=== PATIENT | male | born 1935 | race African-American/Black ===

== ENCOUNTER 2022-05-13 14:23 | Inpatient (IN) | payer MEDICARE ==
[~2022-05-13] VITALS: Ht 167.6 cm; Wt 125.2 kg
[2022-05-13] MEDS ORDERED: ALBUTEROL (0.083%) 2.5MG/3ML NEB HHN STA (15:43)
[2022-05-13] MEDS ORDERED: IPRATROPIUM BROMIDE (0.02%) 0.5MG/2.5ML NEB HHN STA (15:43)
[2022-05-13 16:03] LABS: MEAN CORPUSCULAR HEMOGLOBIN 32.8 pg (28.0-32.0); MEAN CORPUSCULAR VOLUME 102.3 fL (80.0-94.0); MEAN PLATELET VOLUME 9.8 fl (7.4-10.4); PLATELET 332 x1000/uL (130-400); RED BLOOD CELL COUNT 1.56 mill/uL (4.7-6.1); RED CELL DISTRIBUTION WIDTH 21.9 % (11.6-14.6)
[2022-05-13 16:05] LABS: CHLORIDE 96 mEq/L (98-107)
[2022-05-13 16:20] LABS: HEMOGLOBIN. 5.1 g/dL (14.0-18.0)
[2022-05-13 17:28] LABS: BG BASE EXCESS 14.7 mmol/L (-2.0-2.0); BG CARBOXYHEMOGLOBIN 1.5 % (0.5-1.5); BG DEOXYHEMOGLOBIN 1.5 % (0.0-5.0); BG FRACTION INSPIRED OXYGEN 60; BG METHEMOGLOBIN 0.5 % (0.0-1.5); BG OXYGEN SATURATION 98.5 % (92.0-98.5); BG OXYHEMOGLOBIN 96.5 % (94.0-97.0); BG PCO2 96.8 mmHg (35.0-45.0); BG PH 7.265 (7.350-7.450); BG PO2 115.6 mmHg (75.0-100.0); BG SAMPLE SITE RIGHT RADIAL; BG TOTAL HEMOGLOBIN 5.8 g/dL (12.0-18.0); BG TOTAL RESPIRATORY RATE 18 b/min; BG VENT MODE MASK - BIPAP
[2022-05-13 18:48] LABS: BG BASE EXCESS 9.9 mmol/L (-2.0-2.0); BG CARBOXYHEMOGLOBIN 0.4 % (0.5-1.5); BG DEOXYHEMOGLOBIN 7.7 % (0.0-5.0); BG FRACTION INSPIRED OXYGEN 40; BG HCO3 ACT 36.7 mmol/L (22.0-26.0); BG METHEMOGLOBIN 0.5 % (0.0-1.5); BG OXYGEN SATURATION 92.2 % (92.0-98.5); BG OXYHEMOGLOBIN 91.4 % (94.0-97.0); BG PCO2 72.6 mmHg (35.0-45.0); BG PH 7.322 (7.350-7.450); BG PO2 74.5 mmHg (75.0-100.0); BG SAMPLE SITE LEFT RADIAL; BG TOTAL HEMOGLOBIN 5.5 g/dL (12.0-18.0); BG TOTAL RESPIRATORY RATE 30 b/min; BG VENT MODE MASK - BIPAP
[2022-05-13] MEDS ORDERED: ALBUTEROL (0.083%) 2.5MG/3ML NEB ONE (18:49)
[2022-05-13] MEDS ORDERED: IPRATROPIUM BROMIDE (0.02%) 0.5MG/2.5ML NEB ONE (18:50)
[2022-05-13] MEDS: FUROSEMIDE 40MG/4ML VIAL IVP SCH (19:08)
[2022-05-13] MEDS ORDERED: ONDANSETRON HCL 4MG/2ML INJ IV PRN (20:00)
[2022-05-13] MEDS ORDERED: ACETAMINOPHEN 325MG TABLET PO PRN (20:00)
[2022-05-13] MEDS ORDERED: MAGNESIUM/ALUMINUM HYDROXIDE/SIMETHICONE 30ML UDC PO PRN (20:00)
[2022-05-13] MEDS ORDERED: HYDROCODONE/ACETAMINOPHEN 5/325MG TABLET PO PRN (20:00)
[2022-05-13] MEDS ORDERED: IPRATROPIUM/ALBUTEROL 0.5-3(2.5)MG/3ML NEB HHN PRN (20:00)
[2022-05-13] MEDS ORDERED: ACETAMINOPHEN 650MG SUPP PR PRN ×2 (20:00)
[2022-05-13] MEDS ORDERED: CLONIDINE 0.1MG TABLET PO PRN (20:00)
[2022-05-13 21:15] LABS: INR 1.1
[2022-05-13] MEDS: LORAZEPAM 0.5MG TABLET PO PRN (21:32)
[2022-05-13 22:30] VITALS: BP 150/72
[2022-05-13 22:37] LABS: PLATELET ESTIMATE NORMAL
[2022-05-14] VITALS (16 sets, daily range): BP systolic 98–150; BP diastolic 49–78
[2022-05-14] MEDS ORDERED: INFLUENZA VACCINE 05/PF 0.5 ML SYRINGE IM ONE (01:30)
[2022-05-14] MEDS ORDERED: PNEUMOCOCCAL 23-VAL P-SAC VAC 0.5 ML IM ONE (01:30)
[2022-05-14 06:40] LABS: BASOPHILS % 0.4 % (0.0-2.0); EOSINOPHILS % 0.2 % (0.0-5.0); LYMPHOCYTES % 8.1 % (20.0-50.0); MEAN CORPUSCULAR HEMOGLOBIN 31.9 pg (28.0-32.0); MEAN CORPUSCULAR VOLUME 97.6 fL (80.0-94.0); MEAN PLATELET VOLUME 9.6 fl (7.4-10.4); MONOCYTES % 11.1 % (2.0-8.0); NEUTROPHILS % 80.2 % (40.0-76.0); PLATELET 333 x1000/uL (130-400); RED BLOOD CELL COUNT 2.06 mill/uL (4.7-6.1); RED CELL DISTRIBUTION WIDTH 22.8 % (11.6-14.6)
[2022-05-14 07:14] LABS: CHLORIDE 93 mEq/L (98-107)
[2022-05-14 07:33] LABS: HEMATOCRIT. 20.1 % (42.0-52.0); HEMOGLOBIN. 6.6 g/dL (14.0-18.0)
[2022-05-14 07:41] LABS: CREATINE KINASE 74 IU/L (39-308); HDL CHOLESTEROL 35 mg/dL (40-59); LDL CHOLESTEROL 30 mg/dL (5-100)
[2022-05-14 07:44] LABS: BG CARBOXYHEMOGLOBIN 0.2 % (0.5-1.5); BG DEOXYHEMOGLOBIN 6.3 % (0.0-5.0); BG HCO3 ACT 35.6 mmol/L (22.0-26.0); BG METHEMOGLOBIN 0.3 % (0.0-1.5); BG OXYGEN SATURATION 93.7 % (92.0-98.5); BG OXYHEMOGLOBIN 93.2 % (94.0-97.0); BG PCO2 56.6 mmHg (35.0-45.0); BG PH 7.417 (7.350-7.450); BG PO2 70.9 mmHg (75.0-100.0); BG SAMPLE SITE RIGHT RADIAL; BG TOTAL HEMOGLOBIN 7.3 g/dL (12.0-18.0); BG VENT MODE MASK - BIPAP
[2022-05-14] MEDS: FUROSEMIDE 40MG/4ML VIAL IVP SCH (08:02)
[2022-05-14] MEDS: ACETAMINOPHEN 325MG TABLET PO PRN (08:03)
[2022-05-14] MEDS: LISINOPRIL 20MG TABLET PO SCH (08:03)
[2022-05-14] MEDS: DOCUSATE SODIUM 100MG CAPSULE PO PRN (08:03)
[2022-05-14 11:03] LABS: TOTAL IRON BINDING CAPACITY 181 ug/dL (250-450)
[2022-05-14] MEDS: PANTOPRAZOLE SODIUM 40 MG/VIAL IV SCH ×2 (11:04→22:33)
[2022-05-14 11:36] LABS: VITAMIN B12 SERUM 572 pg/mL (211-911)
[2022-05-14] MEDS ORDERED: FOLIC ACID 1MG TABLET PO SCH (14:00)
[2022-05-14] MEDS: IRON SUCROSE COMPLEX 100 MG/5 ML ML IV SCH (14:51)
[2022-05-14] MEDS: FOLIC ACID 1MG TABLET PO SCH (14:51)
[2022-05-14] MEDS: METHYLPREDNISOLONE SOD SUCC 125 MG/2 ML VIAL IV SCH ×2 (14:51→22:29)
[2022-05-14] MEDS: LORAZEPAM 0.5MG TABLET PO PRN (18:20)
[2022-05-14] MEDS: IPRATROPIUM/ALBUTEROL 0.5-3(2.5)MG/3ML NEB HHN SCH ×2 (18:24→20:36)
[2022-05-14] MEDS ORDERED: MORPHINE SULFATE 2 MG/ML CPJ (NOT FOR IM USE) IV PRN (18:30)
[2022-05-14] MEDS ORDERED: LORAZEPAM 2MG/ML CPJ IV PRN (18:30)
[2022-05-14] MEDS ORDERED: CEFTRIAXONE 2 G PREMIX 50 ML IV SCH (19:15)
[2022-05-14 19:18] LABS: HEMATOCRIT 22.9 % (42.0-52.0); HEMOGLOBIN 7.6 g/dL (14.0-18.0)
[2022-05-14] MEDS: DOXYCYCLINE 100 MG in DEXT 5% WATER 100 ML IV SCH (20:43)
[2022-05-14] MEDS: CEFTRIAXONE 2,000 MG in DEXTROSE 5% WATER 50 ML IV SCH (21:54)
[2022-05-15] VITALS (14 sets, daily range): BP systolic 92–150; BP diastolic 40–76
[2022-05-15] MEDS: IPRATROPIUM/ALBUTEROL 0.5-3(2.5)MG/3ML NEB HHN SCH ×5 (00:47→21:28)
[2022-05-15 00:59] LABS: HEMATOCRIT 25.1 % (42.0-52.0)
[2022-05-15] MEDS: ACETAMINOPHEN 325MG TABLET PO PRN ×2 (02:01→21:22)
[2022-05-15 05:43] LABS: HEMATOCRIT 23.1 % (42.0-52.0); HEMOGLOBIN 7.8 g/dL (14.0-18.0)
[2022-05-15] MEDS: METHYLPREDNISOLONE SOD SUCC 125 MG/2 ML VIAL IV SCH ×3 (06:00→21:19)
[2022-05-15] MEDS: CYANOCOBALAMIN 1000MCG TABLET PO SCH (07:20)
[2022-05-15] MEDS: DOXYCYCLINE 100 MG in DEXT 5% WATER 100 ML IV SCH ×2 (09:00→21:18)
[2022-05-15] MEDS: FUROSEMIDE 40MG/4ML VIAL IVP SCH (09:02)
[2022-05-15] MEDS: PANTOPRAZOLE SODIUM 40 MG/VIAL IV SCH ×2 (09:02→21:19)
[2022-05-15] MEDS: FOLIC ACID 1MG TABLET PO SCH (09:02)
[2022-05-15] MEDS: IRON SUCROSE COMPLEX 100 MG/5 ML ML IV SCH (09:03)
[2022-05-15] MEDS: LISINOPRIL 20MG TABLET PO SCH (09:03)
[2022-05-15] MEDS ORDERED: NALOXONE HCL 0.4MG/ML VIAL IV PRN (11:15)
[2022-05-15 13:07] LABS: HEMATOCRIT 23.3 % (42.0-52.0); HEMOGLOBIN 7.7 g/dL (14.0-18.0)
[2022-05-15 18:09] LABS: HEMATOCRIT 20.7 % (42.0-52.0); HEMOGLOBIN 6.9 g/dL (14.0-18.0)
[2022-05-15] MEDS: CEFTRIAXONE 2,000 MG in DEXTROSE 5% WATER 50 ML IV SCH (21:18)
[2022-05-16] VITALS (15 sets, daily range): BP systolic 103–134; BP diastolic 47–78
[2022-05-16 00:42] LABS: HEMOGLOBIN 6.9 g/dL (14.0-18.0)
[2022-05-16 00:43] LABS: HEMATOCRIT 20.8 % (42.0-52.0)
[2022-05-16] MEDS: IPRATROPIUM/ALBUTEROL 0.5-3(2.5)MG/3ML NEB HHN SCH ×6 (00:58→20:25)
[2022-05-16 06:33] LABS: HEMATOCRIT. 24.9 % (42.0-52.0); HEMOGLOBIN. 8.3 g/dL (14.0-18.0); MEAN CORPUSCULAR HEMOGLOBIN 31.2 pg (28.0-32.0); MEAN CORPUSCULAR VOLUME 94.1 fL (80.0-94.0); MEAN PLATELET VOLUME 9.3 fl (7.4-10.4); PLATELET 378 x1000/uL (130-400); RED BLOOD CELL COUNT 2.65 mill/uL (4.7-6.1); RED CELL DISTRIBUTION WIDTH 19.4 % (11.6-14.6)
[2022-05-16] MEDS: METHYLPREDNISOLONE SOD SUCC 125 MG/2 ML VIAL IV SCH (06:50)
[2022-05-16] MEDS: CYANOCOBALAMIN 1000MCG TABLET PO SCH (06:51)
[2022-05-16 07:52] LABS: CHLORIDE 95 mEq/L (98-107)
[2022-05-16 08:08] LABS: HBSAG SCREEN Negative (Negative)
[2022-05-16] MEDS: FOLIC ACID 1MG TABLET PO SCH (08:58)
[2022-05-16] MEDS: FUROSEMIDE 40MG/4ML VIAL IVP SCH (08:58)
[2022-05-16] MEDS: IRON SUCROSE COMPLEX 100 MG/5 ML ML IV SCH (08:59)
[2022-05-16] MEDS: PANTOPRAZOLE SODIUM 40 MG/VIAL IV SCH ×2 (08:59→21:34)
[2022-05-16] MEDS: LISINOPRIL 20MG TABLET PO SCH (08:59)
[2022-05-16] MEDS: DOXYCYCLINE 100 MG in DEXT 5% WATER 100 ML IV SCH ×2 (09:00→21:35)
[2022-05-16] MEDS: METHYLPREDNISOLONE SOD SUCC 40 MG/ML VIAL IV SCH ×2 (14:00→21:35)
[2022-05-16 16:40] LABS: HEMATOCRIT 27.3 % (42.0-52.0)
[2022-05-16 21:01] LABS: HEMATOCRIT 30.9 % (42.0-52.0); HEMOGLOBIN 10.2 g/dL (14.0-18.0)
[2022-05-16] MEDS: CEFTRIAXONE 2,000 MG in DEXTROSE 5% WATER 50 ML IV SCH (21:35)
[2022-05-16 21:48] LABS: PLATELET ESTIMATE NORMAL
[2022-05-16] MEDS: ACETAMINOPHEN 325MG TABLET PO PRN (21:55)
[2022-05-17] VITALS (11 sets, daily range): BP systolic 100–133; BP diastolic 50–77
[2022-05-17] MEDS: IPRATROPIUM/ALBUTEROL 0.5-3(2.5)MG/3ML NEB HHN SCH ×6 (00:18→20:42)
[2022-05-17 00:59] LABS: HEMATOCRIT 27.8 % (42.0-52.0); HEMOGLOBIN 9.1 g/dL (14.0-18.0)
[2022-05-17 06:34] LABS: HEMATOCRIT. 26.4 % (42.0-52.0); HEMOGLOBIN. 8.7 g/dL (14.0-18.0); MEAN CORPUSCULAR HEMOGLOBIN 31.1 pg (28.0-32.0); MEAN CORPUSCULAR VOLUME 94.5 fL (80.0-94.0); MEAN PLATELET VOLUME 9.1 fl (7.4-10.4); PLATELET 396 x1000/uL (130-400); RED BLOOD CELL COUNT 2.79 mill/uL (4.7-6.1); RED CELL DISTRIBUTION WIDTH 19.7 % (11.6-14.6)
[2022-05-17] MEDS: METHYLPREDNISOLONE SOD SUCC 40 MG/ML VIAL IV SCH ×3 (06:49→22:16)
[2022-05-17] MEDS: ASCORBIC ACID 500 MG TABLET PO SCH ×3 (06:49→17:49)
[2022-05-17] MEDS: FERROUS SULFATE 325MG TABLET PO SCH ×3 (06:49→17:49)
[2022-05-17] MEDS: CYANOCOBALAMIN 1000MCG TABLET PO SCH (06:49)
[2022-05-17 07:29] LABS: CHLORIDE 97 mEq/L (98-107)
[2022-05-17] MEDS: PANTOPRAZOLE SODIUM 40 MG/VIAL IV SCH ×2 (08:32→22:15)
[2022-05-17] MEDS: DOXYCYCLINE 100 MG in DEXT 5% WATER 100 ML IV SCH ×2 (08:33→22:15)
[2022-05-17] MEDS: LISINOPRIL 20MG TABLET PO SCH (08:33)
[2022-05-17] MEDS: FUROSEMIDE 40MG/4ML VIAL IVP SCH (08:33)
[2022-05-17] MEDS: FOLIC ACID 1MG TABLET PO SCH (08:33)
[2022-05-17 10:35] LABS: BG BASE EXCESS 14.9 mmol/L (-2.0-2.0); BG CARBOXYHEMOGLOBIN 0.3 % (0.5-1.5); BG DEOXYHEMOGLOBIN 3.6 % (0.0-5.0); BG FRACTION INSPIRED OXYGEN 44; BG METHEMOGLOBIN 0.8 % (0.0-1.5); BG OXYGEN SATURATION 96.4 % (92.0-98.5); BG OXYHEMOGLOBIN 95.3 % (94.0-97.0); BG PCO2 60.8 mmHg (35.0-45.0); BG PH 7.447 (7.350-7.450); BG PO2 88.7 mmHg (75.0-100.0); BG SAMPLE SITE LEFT RADIAL; BG TOTAL HEMOGLOBIN 9.7 g/dL (12.0-18.0); BG VENT MODE NASAL CANNULA
[2022-05-17] MEDS ORDERED: ACETAZOLAMIDE 250MG TABLET PO NR ×2 (11:00→12:00)
[2022-05-17 12:01] LABS: NUCLEATED RED BLOOD CELLS 2 /100 WBC; PLATELET ESTIMATE NORMAL
[2022-05-17 12:58] LABS: CLARITY URINE CLEAR (CLEAR); COLOR URINE YELLOW (YELLOW); KETONES URINE NEGATIVE (NEGATIVE); LEUKOCYTE ESTERASE URINE NEGATIVE (NEGATIVE); NITRITE URINE NEGATIVE (NEGATIVE); OCCULT BLOOD URINE NEGATIVE (NEGATIVE); PH URINE 6.5 (4.5-8.0); PROTEIN URINE NEGATIVE (NEGATIVE)
[2022-05-17 13:48] LABS: *AMPHETAMINES SCREEN URINE NEGATIVE (NEGATIVE); *BARBITURATES SCREEN URINE NEGATIVE (NEGATIVE); *BENZODIAZEPINES SCREEN URINE NEGATIVE (NEGATIVE); *COCAINE SCREEN URINE NEGATIVE (NEGATIVE); CANNABINOID URINE SCREEN NEGATIVE (NEGATIVE); METHADONE URINE SCREEN NEGATIVE (NEGATIVE); OPIATES URINE SCREEN NEGATIVE (NEGATIVE); PHENCYCLIDINE URINE SCREEN NEGATIVE (NEGATIVE)
[2022-05-17] MEDS ORDERED: ALBU05 NEB (16:40)
[2022-05-17 17:07] LABS: HEMATOCRIT 25.5 % (42.0-52.0); HEMOGLOBIN 8.4 g/dL (14.0-18.0)
[2022-05-17] MEDS: CEFTRIAXONE 2,000 MG in DEXTROSE 5% WATER 50 ML IV SCH (22:15)
[2022-05-17] MEDS: ACETAMINOPHEN 325MG TABLET PO PRN (22:16)
[2022-05-18] VITALS (12 sets, daily range): BP systolic 102–138; BP diastolic 22–81
[2022-05-18] MEDS: IPRATROPIUM/ALBUTEROL 0.5-3(2.5)MG/3ML NEB HHN SCH ×6 (00:34→22:07)
[2022-05-18 01:28] LABS: HEMATOCRIT 25.5 % (42.0-52.0); HEMOGLOBIN 8.4 g/dL (14.0-18.0)
[2022-05-18] MEDS: ASCORBIC ACID 500 MG TABLET PO SCH ×2 (07:09→16:28)
[2022-05-18] MEDS: CYANOCOBALAMIN 1000MCG TABLET PO SCH (07:09)
[2022-05-18] MEDS: METHYLPREDNISOLONE SOD SUCC 40 MG/ML VIAL IV SCH ×3 (07:09→22:39)
[2022-05-18] MEDS: FERROUS SULFATE 325MG TABLET PO SCH ×2 (07:09→16:28)
[2022-05-18 08:18] LABS: HEMATOCRIT. 25.8 % (42.0-52.0); HEMOGLOBIN. 8.5 g/dL (14.0-18.0); MEAN CORPUSCULAR HEMOGLOBIN 31.4 pg (28.0-32.0); MEAN PLATELET VOLUME 8.9 fl (7.4-10.4); PLATELET 382 x1000/uL (130-400); RED BLOOD CELL COUNT 2.71 mill/uL (4.7-6.1); RED CELL DISTRIBUTION WIDTH 19.4 % (11.6-14.6)
[2022-05-18 08:56] LABS: PLATELET ESTIMATE NORMAL
[2022-05-18] MEDS: PANTOPRAZOLE SODIUM 40 MG/VIAL IV SCH ×2 (09:21→22:39)
[2022-05-18] MEDS: DOXYCYCLINE 100 MG in DEXT 5% WATER 100 ML IV SCH ×2 (09:21→22:38)
[2022-05-18] MEDS: FOLIC ACID 1MG TABLET PO SCH (09:21)
[2022-05-18] MEDS: FUROSEMIDE 40MG/4ML VIAL IVP SCH (09:21)
[2022-05-18] MEDS: LISINOPRIL 20MG TABLET PO SCH (09:22)
[2022-05-18 10:33] LABS: CHLORIDE 97 mEq/L (98-107)
[2022-05-18] MEDS ORDERED: GUAIFENESIN/DM 600MG/30MG ER TAB 12HR PO PRN (11:00)
[2022-05-18] MEDS: GUAIFENESIN/DM 600MG/30MG ER TAB 12HR PO SCH ×2 (16:28→22:39)
[2022-05-18] MEDS: BUDESONIDE 0.5MG/2ML NEB HHN SCH (22:08)
[2022-05-18] MEDS: CEFTRIAXONE 2,000 MG in DEXTROSE 5% WATER 50 ML IV SCH (22:38)
[2022-05-18] MEDS: ACETAMINOPHEN 325MG TABLET PO PRN (22:39)
[2022-05-19] VITALS (10 sets, daily range): BP systolic 95–129; BP diastolic 41–69
[2022-05-19] MEDS: IPRATROPIUM/ALBUTEROL 0.5-3(2.5)MG/3ML NEB HHN SCH ×6 (04:00→21:35)
[2022-05-19] MEDS: CYANOCOBALAMIN 1000MCG TABLET PO SCH (07:15)
[2022-05-19] MEDS: FERROUS SULFATE 325MG TABLET PO SCH ×2 (07:15→17:02)
[2022-05-19] MEDS: ASCORBIC ACID 500 MG TABLET PO SCH ×2 (07:16→17:02)
[2022-05-19 08:04] LABS: HEMATOCRIT. 27.1 % (42.0-52.0); HEMOGLOBIN. 8.9 g/dL (14.0-18.0); MEAN CORPUSCULAR HEMOGLOBIN 30.9 pg (28.0-32.0); MEAN CORPUSCULAR VOLUME 94.8 fL (80.0-94.0); MEAN PLATELET VOLUME 8.2 fl (7.4-10.4); PLATELET 386 x1000/uL (130-400); RED BLOOD CELL COUNT 2.86 mill/uL (4.7-6.1); RED CELL DISTRIBUTION WIDTH 19.4 % (11.6-14.6)
[2022-05-19 08:07] LABS: CHLORIDE 97 mEq/L (98-107)
[2022-05-19] MEDS: GUAIFENESIN/DM 600MG/30MG ER TAB 12HR PO SCH ×2 (09:00→22:01)
[2022-05-19] MEDS: LISINOPRIL 20MG TABLET PO SCH (09:17)
[2022-05-19] MEDS: PANTOPRAZOLE SODIUM 40 MG/VIAL IV SCH ×2 (09:17→22:00)
[2022-05-19] MEDS: METHYLPREDNISOLONE SOD SUCC 40 MG/ML VIAL IV SCH ×2 (09:17→22:00)
[2022-05-19] MEDS: GUAIFENESIN 200MG/10ML SUGAR FREE UDC PO PRN (09:17)
[2022-05-19] MEDS: DOXYCYCLINE 100 MG in DEXT 5% WATER 100 ML IV SCH (09:17)
[2022-05-19] MEDS: FUROSEMIDE 40MG/4ML VIAL IVP SCH (09:17)
[2022-05-19] MEDS: FOLIC ACID 1MG TABLET PO SCH (09:18)
[2022-05-19] MEDS: BUDESONIDE 0.5MG/2ML NEB HHN SCH ×2 (10:12→21:35)
[2022-05-19 11:27] LABS: PLATELET ESTIMATE NORMAL
[2022-05-19] MEDS ORDERED: IOHEXOL-350 100 ML BOTTLE ONE (13:31)
[2022-05-19] MEDS: CEFTRIAXONE 2,000 MG in DEXTROSE 5% WATER 50 ML IV SCH (22:00)
[2022-05-19] MEDS: ACETAMINOPHEN 325MG TABLET PO PRN (22:01)
[2022-05-20] VITALS (12 sets, daily range): BP systolic 97–128; BP diastolic 42–66
[2022-05-20] MEDS: IPRATROPIUM/ALBUTEROL 0.5-3(2.5)MG/3ML NEB HHN SCH ×7 (01:10→23:06)
[2022-05-20 06:49] LABS: HEMATOCRIT. 28.8 % (42.0-52.0); HEMOGLOBIN. 9.4 g/dL (14.0-18.0); MEAN CORPUSCULAR VOLUME 94.9 fL (80.0-94.0); MEAN PLATELET VOLUME 8.5 fl (7.4-10.4); PLATELET 376 x1000/uL (130-400); RED BLOOD CELL COUNT 3.03 mill/uL (4.7-6.1); RED CELL DISTRIBUTION WIDTH 19.6 % (11.6-14.6)
[2022-05-20 06:55] LABS: CHLORIDE 97 mEq/L (98-107)
[2022-05-20] MEDS: ASCORBIC ACID 500 MG TABLET PO SCH ×2 (07:15→17:20)
[2022-05-20] MEDS: CYANOCOBALAMIN 1000MCG TABLET PO SCH (07:15)
[2022-05-20] MEDS: FERROUS SULFATE 325MG TABLET PO SCH ×2 (07:15→17:20)
[2022-05-20] MEDS: BUDESONIDE 0.5MG/2ML NEB HHN SCH ×2 (08:34→20:30)
[2022-05-20] MEDS: METHYLPREDNISOLONE SOD SUCC 40 MG/ML VIAL IV SCH (08:55)
[2022-05-20] MEDS: GUAIFENESIN 200MG/10ML SUGAR FREE UDC PO PRN (08:56)
[2022-05-20] MEDS: GUAIFENESIN/DM 600MG/30MG ER TAB 12HR PO SCH ×2 (08:56→21:16)
[2022-05-20] MEDS: PANTOPRAZOLE SODIUM 40 MG/VIAL IV SCH ×2 (08:56→21:15)
[2022-05-20] MEDS: LISINOPRIL 20MG TABLET PO SCH (08:56)
[2022-05-20] MEDS: FUROSEMIDE 40MG/4ML VIAL IVP SCH (08:56)
[2022-05-20] MEDS: FOLIC ACID 1MG TABLET PO SCH (08:56)
[2022-05-20 10:33] LABS: PLATELET ESTIMATE NORMAL
[2022-05-20] MEDS ORDERED: ACETAZOLAMIDE 250MG TABLET PO NR (13:30)
[2022-05-21] VITALS (13 sets, daily range): BP systolic 94–127; BP diastolic 39–77
[2022-05-21] MEDS: IPRATROPIUM/ALBUTEROL 0.5-3(2.5)MG/3ML NEB HHN SCH ×5 (04:13→21:19)
[2022-05-21 05:34] LABS: CHLORIDE 96 mEq/L (98-107)
[2022-05-21 06:17] LABS: HEMOGLOBIN. 8.9 g/dL (14.0-18.0); MEAN CORPUSCULAR HEMOGLOBIN 30.8 pg (28.0-32.0); MEAN CORPUSCULAR VOLUME 97.1 fL (80.0-94.0); MEAN PLATELET VOLUME 8.9 fl (7.4-10.4); PLATELET 329 x1000/uL (130-400); RED BLOOD CELL COUNT 2.89 mill/uL (4.7-6.1); RED CELL DISTRIBUTION WIDTH 19.9 % (11.6-14.6)
[2022-05-21] MEDS: LISINOPRIL 20MG TABLET PO SCH (09:00)
[2022-05-21] MEDS: FUROSEMIDE 40MG/4ML VIAL IVP SCH ×2 (09:00→17:15)
[2022-05-21 09:02] LABS: BG BASE EXCESS 8.9 mmol/L (-2.0-2.0); BG CARBOXYHEMOGLOBIN 0.3 % (0.5-1.5); BG DEOXYHEMOGLOBIN 4.5 % (0.0-5.0); BG FRACTION INSPIRED OXYGEN 32; BG HCO3 ACT 35.6 mmol/L (22.0-26.0); BG METHEMOGLOBIN 0.3 % (0.0-1.5); BG OXYGEN SATURATION 95.5 % (92.0-98.5); BG OXYHEMOGLOBIN 94.9 % (94.0-97.0); BG PCO2 61.7 mmHg (35.0-45.0); BG PH 7.379 (7.350-7.450); BG PO2 78.9 mmHg (75.0-100.0); BG SAMPLE SITE LEFT RADIAL; BG TOTAL HEMOGLOBIN 10.1 g/dL (12.0-18.0); BG VENT MODE NASAL CANNULA
[2022-05-21] MEDS: BUDESONIDE 0.5MG/2ML NEB HHN SCH ×2 (09:04→21:17)
[2022-05-21] MEDS: FOLIC ACID 1MG TABLET PO SCH (09:51)
[2022-05-21] MEDS: FERROUS SULFATE 325MG TABLET PO SCH ×2 (09:51→17:16)
[2022-05-21] MEDS: ASCORBIC ACID 500 MG TABLET PO SCH ×2 (09:51→17:16)
[2022-05-21] MEDS: CYANOCOBALAMIN 1000MCG TABLET PO SCH (09:51)
[2022-05-21] MEDS: PANTOPRAZOLE SODIUM 40 MG/VIAL IV SCH ×2 (09:52→21:21)
[2022-05-21] MEDS: METHYLPREDNISOLONE SOD SUCC 40 MG/ML VIAL IV SCH (09:52)
[2022-05-21] MEDS: GUAIFENESIN/DM 600MG/30MG ER TAB 12HR PO SCH ×2 (09:53→21:21)
[2022-05-21] MEDS ORDERED: ACETAZOLAMIDE 250MG TABLET PO NR (12:00)
[2022-05-21 14:12] LABS: NUCLEATED RED BLOOD CELLS 1 /100 WBC; PLATELET ESTIMATE NORMAL
[2022-05-22] VITALS (8 sets, daily range): BP systolic 89–123; BP diastolic 41–69
[2022-05-22] MEDS: IPRATROPIUM/ALBUTEROL 0.5-3(2.5)MG/3ML NEB HHN SCH ×6 (00:49→22:01)
[2022-05-22 05:24] LABS: HEMATOCRIT. 27.8 % (42.0-52.0); MEAN CORPUSCULAR HEMOGLOBIN 31.3 pg (28.0-32.0); MEAN CORPUSCULAR VOLUME 96.8 fL (80.0-94.0); MEAN PLATELET VOLUME 9.1 fl (7.4-10.4); PLATELET 273 x1000/uL (130-400); RED BLOOD CELL COUNT 2.87 mill/uL (4.7-6.1); RED CELL DISTRIBUTION WIDTH 19.8 % (11.6-14.6)
[2022-05-22 06:22] LABS: CHLORIDE 95 mEq/L (98-107)
[2022-05-22] MEDS: LISINOPRIL 20MG TABLET PO SCH (09:19)
[2022-05-22] MEDS: ASCORBIC ACID 500 MG TABLET PO SCH ×2 (09:19→17:02)
[2022-05-22] MEDS: PREDNISONE 20MG TABLET PO SCH (09:19)
[2022-05-22] MEDS: DOCUSATE SODIUM 100MG CAPSULE PO PRN (09:20)
[2022-05-22] MEDS: FERROUS SULFATE 325MG TABLET PO SCH ×2 (09:20→17:02)
[2022-05-22] MEDS: FUROSEMIDE 40MG/4ML VIAL IVP SCH (09:20)
[2022-05-22] MEDS: GUAIFENESIN/DM 600MG/30MG ER TAB 12HR PO SCH ×2 (09:20→21:13)
[2022-05-22] MEDS: FOLIC ACID 1MG TABLET PO SCH (09:20)
[2022-05-22] MEDS: PANTOPRAZOLE SODIUM 40 MG/VIAL IV SCH (09:20)
[2022-05-22] MEDS: CYANOCOBALAMIN 1000MCG TABLET PO SCH (09:20)
[2022-05-22 09:45] LABS: PLATELET ESTIMATE NORMAL
[2022-05-22] MEDS: PANTOPRAZOLE 40MG DR TABLET PO SCH (21:12)
[2022-05-23] VITALS (7 sets, daily range): BP systolic 102–132; BP diastolic 41–57
[2022-05-23] MEDS: IPRATROPIUM/ALBUTEROL 0.5-3(2.5)MG/3ML NEB HHN SCH ×5 (02:00→16:42)
[2022-05-23] MEDS: PANTOPRAZOLE 40MG DR TABLET PO SCH ×2 (06:00→20:26)
[2022-05-23] MEDS: FOLIC ACID 1MG TABLET PO SCH (08:03)
[2022-05-23] MEDS: ASCORBIC ACID 500 MG TABLET PO SCH ×2 (08:03→18:06)
[2022-05-23] MEDS: LISINOPRIL 20MG TABLET PO SCH (08:03)
[2022-05-23] MEDS: PREDNISONE 20MG TABLET PO SCH (08:03)
[2022-05-23] MEDS: FERROUS SULFATE 325MG TABLET PO SCH ×2 (08:03→18:06)
[2022-05-23] MEDS: GUAIFENESIN 200MG/10ML SUGAR FREE UDC PO PRN (08:03)
[2022-05-23] MEDS: FUROSEMIDE 40MG TABLET PO SCH (08:03)
[2022-05-23] MEDS: GUAIFENESIN/DM 600MG/30MG ER TAB 12HR PO SCH ×2 (08:05→20:26)
[2022-05-23] MEDS: CYANOCOBALAMIN 1000MCG TABLET PO SCH (08:06)
[2022-05-23 10:25] LABS: HEMATOCRIT. 26.5 % (42.0-52.0); HEMOGLOBIN. 8.6 g/dL (14.0-18.0); MEAN CORPUSCULAR HEMOGLOBIN 31.5 pg (28.0-32.0); MEAN CORPUSCULAR VOLUME 97.2 fL (80.0-94.0); MEAN PLATELET VOLUME 9.2 fl (7.4-10.4); PLATELET 240 x1000/uL (130-400); RED BLOOD CELL COUNT 2.73 mill/uL (4.7-6.1); RED CELL DISTRIBUTION WIDTH 20.1 % (11.6-14.6)
[2022-05-23 10:38] LABS: CHLORIDE 96 mEq/L (98-107)
[2022-05-23 11:21] LABS: PLATELET ESTIMATE NORMAL
[2022-05-24] VITALS: BP 118/59
[2022-05-24 04:00] VITALS: BP 127/58
[2022-05-24] MEDS: PANTOPRAZOLE 40MG DR TABLET PO SCH ×2 (06:20→20:06)
[2022-05-24 08:00] VITALS: BP 128/53
[2022-05-24] MEDS: FERROUS SULFATE 325MG TABLET PO SCH ×2 (09:58→18:20)
[2022-05-24] MEDS: FOLIC ACID 1MG TABLET PO SCH (09:58)
[2022-05-24] MEDS: FUROSEMIDE 40MG TABLET PO SCH (09:59)
[2022-05-24] MEDS: CYANOCOBALAMIN 1000MCG TABLET PO SCH (09:59)
[2022-05-24] MEDS: ASCORBIC ACID 500 MG TABLET PO SCH ×2 (09:59→18:20)
[2022-05-24] MEDS: PREDNISONE 20MG TABLET PO SCH (09:59)
[2022-05-24] MEDS: GUAIFENESIN/DM 600MG/30MG ER TAB 12HR PO SCH ×2 (09:59→20:06)
[2022-05-24 10:20] LABS: HEMATOCRIT. 29.6 % (42.0-52.0); HEMOGLOBIN. 9.2 g/dL (14.0-18.0); MEAN CORPUSCULAR HEMOGLOBIN 31.1 pg (28.0-32.0); MEAN CORPUSCULAR VOLUME 99.9 fL (80.0-94.0); MEAN PLATELET VOLUME 9.6 fl (7.4-10.4); PLATELET 217 x1000/uL (130-400); RED BLOOD CELL COUNT 2.96 mill/uL (4.7-6.1); RED CELL DISTRIBUTION WIDTH 20.2 % (11.6-14.6)
[2022-05-24 11:51] LABS: PLATELET ESTIMATE NORMAL
[2022-05-24 12:00] VITALS: BP 130/55
[2022-05-24 13:18] LABS: CHLORIDE 99 mEq/L (98-107)
[2022-05-24 16:00] VITALS: BP 131/58
[2022-05-24] MEDS: ACETAMINOPHEN 325MG TABLET PO PRN (20:07)
[2022-05-24 20:27] VITALS: BP 95/53
[2022-05-24] MEDS: IPRATROPIUM/ALBUTEROL 0.5-3(2.5)MG/3ML NEB HHN SCH (23:20)
[2022-05-25] MEDS: IPRATROPIUM/ALBUTEROL 0.5-3(2.5)MG/3ML NEB HHN SCH ×9 (01:48→21:23)
[2022-05-25 06:34] VITALS: BP 146/60
[2022-05-25 06:35] VITALS: BP 146/60
[2022-05-25 07:53] LABS: HEMATOCRIT. 26.9 % (42.0-52.0); HEMOGLOBIN. 8.7 g/dL (14.0-18.0); MEAN CORPUSCULAR HEMOGLOBIN 31.8 pg (28.0-32.0); MEAN CORPUSCULAR VOLUME 97.7 fL (80.0-94.0); MEAN PLATELET VOLUME 9.3 fl (7.4-10.4); PLATELET 228 x1000/uL (130-400); RED BLOOD CELL COUNT 2.75 mill/uL (4.7-6.1); RED CELL DISTRIBUTION WIDTH 20.6 % (11.6-14.6)
[2022-05-25 08:00] VITALS: BP 113/47
[2022-05-25] MEDS: PANTOPRAZOLE 40MG DR TABLET PO SCH ×2 (08:21→20:47)
[2022-05-25] MEDS: GUAIFENESIN/DM 600MG/30MG ER TAB 12HR PO SCH ×2 (08:21→20:46)
[2022-05-25] MEDS: CYANOCOBALAMIN 1000MCG TABLET PO SCH (08:21)
[2022-05-25] MEDS: FOLIC ACID 1MG TABLET PO SCH (08:21)
[2022-05-25] MEDS: FUROSEMIDE 40MG TABLET PO SCH (08:21)
[2022-05-25] MEDS: ACETAMINOPHEN 325MG TABLET PO PRN ×2 (08:21→18:22)
[2022-05-25] MEDS: ASCORBIC ACID 500 MG TABLET PO SCH ×2 (08:21→18:19)
[2022-05-25] MEDS: FERROUS SULFATE 325MG TABLET PO SCH ×2 (08:21→18:19)
[2022-05-25] MEDS: PREDNISONE 10MG TABLET PO SCH (09:00)
[2022-05-25 09:33] LABS: CHLORIDE 98 mEq/L (98-107)
[2022-05-25 09:34] LABS: PLATELET ESTIMATE NORMAL
[2022-05-25 12:00] VITALS: BP 123/72
[2022-05-25 16:00] VITALS: BP 130/68
[2022-05-25 20:13] VITALS: BP 122/58
[2022-05-26] MEDS: IPRATROPIUM/ALBUTEROL 0.5-3(2.5)MG/3ML NEB HHN SCH ×4 (00:27→20:59)
[2022-05-26 00:35] VITALS: BP 132/60
[2022-05-26 04:27] VITALS: BP 136/72
[2022-05-26 08:28] LABS: HEMATOCRIT. 27.2 % (42.0-52.0); HEMOGLOBIN. 8.8 g/dL (14.0-18.0); MEAN CORPUSCULAR HEMOGLOBIN 31.4 pg (28.0-32.0); MEAN CORPUSCULAR VOLUME 96.8 fL (80.0-94.0); MEAN PLATELET VOLUME 10.4 fl (7.4-10.4); PLATELET 239 x1000/uL (130-400); RED BLOOD CELL COUNT 2.81 mill/uL (4.7-6.1); RED CELL DISTRIBUTION WIDTH 20.1 % (11.6-14.6)
[2022-05-26] MEDS: FOLIC ACID 1MG TABLET PO SCH (08:43)
[2022-05-26] MEDS: FERROUS SULFATE 325MG TABLET PO SCH ×2 (08:43→18:01)
[2022-05-26] MEDS: ASCORBIC ACID 500 MG TABLET PO SCH ×2 (08:43→18:01)
[2022-05-26] MEDS: PANTOPRAZOLE 40MG DR TABLET PO SCH ×2 (08:44→20:21)
[2022-05-26] MEDS: PREDNISONE 10MG TABLET PO SCH (08:45)
[2022-05-26] MEDS: FUROSEMIDE 40MG TABLET PO SCH (08:45)
[2022-05-26] MEDS: CYANOCOBALAMIN 1000MCG TABLET PO SCH (08:46)
[2022-05-26] MEDS: GUAIFENESIN/DM 600MG/30MG ER TAB 12HR PO SCH ×2 (08:46→20:21)
[2022-05-26] MEDS: ACETAMINOPHEN 325MG TABLET PO PRN ×2 (08:58→20:20)
[2022-05-26 09:15] LABS: CHLORIDE 96 mEq/L (98-107)
[2022-05-26 14:26] LABS: PLATELET ESTIMATE NORMAL
[2022-05-26 16:00] VITALS: BP 125/51
[2022-05-26 20:00] VITALS: BP 118/56
[2022-05-27] VITALS: BP 120/71
[2022-05-27] MEDS: IPRATROPIUM/ALBUTEROL 0.5-3(2.5)MG/3ML NEB HHN SCH ×7 (00:35→23:57)
[2022-05-27] MEDS: ACETAMINOPHEN 325MG TABLET PO PRN ×2 (08:17→21:03)
[2022-05-27] MEDS: FOLIC ACID 1MG TABLET PO SCH (08:17)
[2022-05-27] MEDS: FERROUS SULFATE 325MG TABLET PO SCH ×2 (08:17→17:50)
[2022-05-27] MEDS: CYANOCOBALAMIN 1000MCG TABLET PO SCH (08:17)
[2022-05-27] MEDS: GUAIFENESIN/DM 600MG/30MG ER TAB 12HR PO SCH ×2 (08:18→21:03)
[2022-05-27] MEDS: ASCORBIC ACID 500 MG TABLET PO SCH ×2 (08:18→17:50)
[2022-05-27] MEDS: FUROSEMIDE 40MG TABLET PO SCH (08:18)
[2022-05-27] MEDS: PANTOPRAZOLE 40MG DR TABLET PO SCH ×2 (08:23→21:02)
[2022-05-27 09:15] LABS: HEMATOCRIT. 24.8 % (42.0-52.0); HEMOGLOBIN. 8.3 g/dL (14.0-18.0); MEAN CORPUSCULAR HEMOGLOBIN 32.5 pg (28.0-32.0); MEAN CORPUSCULAR VOLUME 96.6 fL (80.0-94.0); MEAN PLATELET VOLUME 9.7 fl (7.4-10.4); PLATELET 212 x1000/uL (130-400); RED BLOOD CELL COUNT 2.56 mill/uL (4.7-6.1); RED CELL DISTRIBUTION WIDTH 20.1 % (11.6-14.6)
[2022-05-27 09:52] LABS: CHLORIDE 97 mEq/L (98-107)
[2022-05-27 10:03] LABS: PLATELET ESTIMATE NORMAL
[2022-05-27 20:00] VITALS: BP 102/63
[2022-05-27] MEDS: TRAZODONE HCL 50MG TABLET PO SCH (21:03)
[2022-05-28 04:00] VITALS: BP 98/36
[2022-05-28] MEDS: IPRATROPIUM/ALBUTEROL 0.5-3(2.5)MG/3ML NEB HHN SCH ×5 (05:20→21:15)
[2022-05-28] MEDS: PANTOPRAZOLE 40MG DR TABLET PO SCH ×2 (07:23→21:37)
[2022-05-28] MEDS: ACETAMINOPHEN 325MG TABLET PO PRN ×3 (07:28→21:37)
[2022-05-28] MEDS: FOLIC ACID 1MG TABLET PO SCH (08:22)
[2022-05-28] MEDS: GUAIFENESIN/DM 600MG/30MG ER TAB 12HR PO SCH ×2 (08:22→21:37)
[2022-05-28] MEDS: CYANOCOBALAMIN 1000MCG TABLET PO SCH (08:22)
[2022-05-28] MEDS: FERROUS SULFATE 325MG TABLET PO SCH ×2 (08:22→17:58)
[2022-05-28] MEDS: FUROSEMIDE 40MG TABLET PO SCH (08:22)
[2022-05-28] MEDS: ASCORBIC ACID 500 MG TABLET PO SCH ×2 (08:22→17:58)
[2022-05-28] MEDS ORDERED: SODIUM CHLORIDE 0.9% 500 ML IV ONE (12:00)
[2022-05-28] MEDS ORDERED: IPRATROPIUM BROMIDE (0.02%) 0.5MG/2.5ML NEB HHN SCH (12:00)
[2022-05-28] MEDS ORDERED: ALBUMIN HUMAN 25GM/100ML (25%) IV NR (12:00)
[2022-05-28 12:22] LABS: BG BASE EXCESS 8.1 mmol/L (-2.0-2.0); BG CARBOXYHEMOGLOBIN 0.3 % (0.5-1.5); BG DEOXYHEMOGLOBIN 4.6 % (0.0-5.0); BG HCO3 ACT 32.9 mmol/L (22.0-26.0); BG OXYGEN SATURATION 95.4 % (92.0-98.5); BG OXYHEMOGLOBIN 95.1 % (94.0-97.0); BG PCO2 47.7 mmHg (35.0-45.0); BG PH 7.457 (7.350-7.450); BG PO2 73.6 mmHg (75.0-100.0); BG SAMPLE SITE RIGHT RADIAL; BG VENT MODE NASAL CANNULA
[2022-05-28 13:21] LABS: HEMATOCRIT. 25.3 % (42.0-52.0); HEMOGLOBIN. 8.5 g/dL (14.0-18.0); MEAN CORPUSCULAR HEMOGLOBIN 32.5 pg (28.0-32.0); MEAN CORPUSCULAR VOLUME 97.1 fL (80.0-94.0); MEAN PLATELET VOLUME 9.9 fl (7.4-10.4); PLATELET 219 x1000/uL (130-400); RED BLOOD CELL COUNT 2.61 mill/uL (4.7-6.1); RED CELL DISTRIBUTION WIDTH 20.2 % (11.6-14.6)
[2022-05-28 13:50] LABS: PLATELET ESTIMATE NORMAL
[2022-05-28 14:07] LABS: CHLORIDE 99 mEq/L (98-107)
[2022-05-28 16:00] VITALS: BP 114/55
[2022-05-28 20:00] VITALS: BP 153/81
[2022-05-28] MEDS: TRAZODONE HCL 50MG TABLET PO SCH (21:37)
[2022-05-29] VITALS: BP 146/75
[2022-05-29] MEDS: IPRATROPIUM/ALBUTEROL 0.5-3(2.5)MG/3ML NEB HHN SCH ×6 (00:16→21:17)
[2022-05-29 04:00] VITALS: BP 140/88
[2022-05-29] MEDS: FERROUS SULFATE 325MG TABLET PO SCH ×2 (06:54→19:09)
[2022-05-29] MEDS: ASCORBIC ACID 500 MG TABLET PO SCH ×2 (06:54→19:09)
[2022-05-29] MEDS: CYANOCOBALAMIN 1000MCG TABLET PO SCH (06:54)
[2022-05-29] MEDS: PANTOPRAZOLE 40MG DR TABLET PO SCH ×2 (06:55→21:17)
[2022-05-29 07:06] LABS: HEMOGLOBIN. 8.1 g/dL (14.0-18.0); MEAN CORPUSCULAR HEMOGLOBIN 32.5 pg (28.0-32.0); MEAN PLATELET VOLUME 9.7 fl (7.4-10.4); PLATELET 223 x1000/uL (130-400); RED CELL DISTRIBUTION WIDTH 21.2 % (11.6-14.6)
[2022-05-29 07:54] VITALS: BP 105/44
[2022-05-29 08:07] LABS: CHLORIDE 100 mEq/L (98-107)
[2022-05-29] MEDS: GUAIFENESIN/DM 600MG/30MG ER TAB 12HR PO SCH ×2 (09:00→21:17)
[2022-05-29 10:07] LABS: PLATELET ESTIMATE NORMAL
[2022-05-29] MEDS: FOLIC ACID 1MG TABLET PO SCH (11:12)
[2022-05-29] MEDS: FUROSEMIDE 40MG TABLET PO SCH (11:12)
[2022-05-29] MEDS: ACETAMINOPHEN 325MG TABLET PO PRN ×2 (11:16→19:12)
[2022-05-29] MEDS: DOCUSATE SODIUM 100MG CAPSULE PO PRN (11:25)
[2022-05-29 11:52] VITALS: BP 108/55
[2022-05-29 16:11] VITALS: BP 101/53
[2022-05-29 20:00] VITALS: BP 104/48
[2022-05-29] MEDS: TRAZODONE HCL 50MG TABLET PO SCH (21:17)
[2022-05-30] VITALS: BP 104/55
[2022-05-30] MEDS: IPRATROPIUM/ALBUTEROL 0.5-3(2.5)MG/3ML NEB HHN SCH ×6 (01:12→21:15)
[2022-05-30 04:00] VITALS: BP 110/57
[2022-05-30] MEDS: ACETAMINOPHEN 325MG TABLET PO PRN ×2 (05:11→12:45)
[2022-05-30] MEDS: PANTOPRAZOLE 40MG DR TABLET PO SCH ×2 (06:41→21:40)
[2022-05-30] MEDS: CYANOCOBALAMIN 1000MCG TABLET PO SCH (06:55)
[2022-05-30] MEDS: FERROUS SULFATE 325MG TABLET PO SCH ×2 (06:55→19:09)
[2022-05-30] MEDS: ASCORBIC ACID 500 MG TABLET PO SCH ×2 (06:55→19:08)
[2022-05-30 08:00] VITALS: BP 103/52
[2022-05-30 08:10] LABS: BASOPHILS % 0.6 % (0.0-2.0); EOSINOPHILS % 1.4 % (0.0-5.0); HEMATOCRIT. 23.7 % (42.0-52.0); LYMPHOCYTES % 16.3 % (20.0-50.0); MEAN CORPUSCULAR HEMOGLOBIN 32.6 pg (28.0-32.0); MEAN CORPUSCULAR VOLUME 96.3 fL (80.0-94.0); MEAN PLATELET VOLUME 8.9 fl (7.4-10.4); MONOCYTES % 12.3 % (2.0-8.0); NEUTROPHILS % 69.4 % (40.0-76.0); PLATELET 222 x1000/uL (130-400); RED BLOOD CELL COUNT 2.46 mill/uL (4.7-6.1); RED CELL DISTRIBUTION WIDTH 20.1 % (11.6-14.6)
[2022-05-30] MEDS: FOLIC ACID 1MG TABLET PO SCH (09:01)
[2022-05-30] MEDS: FUROSEMIDE 40MG TABLET PO SCH (09:01)
[2022-05-30] MEDS: GUAIFENESIN/DM 600MG/30MG ER TAB 12HR PO SCH ×2 (09:01→21:40)
[2022-05-30 10:43] LABS: CHLORIDE 98 mEq/L (98-107)
[2022-05-30 12:00] VITALS: BP 113/53
[2022-05-30] MEDS: DOCUSATE SODIUM 100MG CAPSULE PO PRN (12:45)
[2022-05-30 16:00] VITALS: BP 122/60
[2022-05-30 20:00] VITALS: BP 102/50
[2022-05-30] MEDS: TRAZODONE HCL 50MG TABLET PO SCH (21:40)
[2022-05-31] VITALS: BP 106/54
[2022-05-31] MEDS: IPRATROPIUM/ALBUTEROL 0.5-3(2.5)MG/3ML NEB HHN SCH ×6 (00:58→21:08)
[2022-05-31 04:00] VITALS: BP 109/42
[2022-05-31] MEDS: FERROUS SULFATE 325MG TABLET PO SCH ×2 (06:54→17:50)
[2022-05-31] MEDS: CYANOCOBALAMIN 1000MCG TABLET PO SCH (06:54)
[2022-05-31] MEDS: ASCORBIC ACID 500 MG TABLET PO SCH ×2 (06:54→17:50)
[2022-05-31] MEDS: PANTOPRAZOLE 40MG DR TABLET PO SCH ×2 (06:54→20:50)
[2022-05-31] MEDS: ACETAMINOPHEN 325MG TABLET PO PRN ×2 (06:56→19:12)
[2022-05-31 08:00] VITALS: BP 105/58
[2022-05-31] MEDS: FOLIC ACID 1MG TABLET PO SCH (08:20)
[2022-05-31] MEDS: GUAIFENESIN 200MG/10ML SUGAR FREE UDC PO PRN (08:20)
[2022-05-31] MEDS: GUAIFENESIN/DM 600MG/30MG ER TAB 12HR PO SCH ×2 (08:23→20:50)
[2022-05-31] MEDS: AMLODIPINE 2.5MG TABLET PO SCH (08:25)
[2022-05-31 08:37] LABS: BASOPHILS % 0.6 % (0.0-2.0); EOSINOPHILS % 2.1 % (0.0-5.0); HEMATOCRIT. 26.1 % (42.0-52.0); HEMOGLOBIN. 8.5 g/dL (14.0-18.0); LYMPHOCYTES % 12.4 % (20.0-50.0); MEAN CORPUSCULAR VOLUME 97.9 fL (80.0-94.0); MEAN PLATELET VOLUME 9.4 fl (7.4-10.4); MONOCYTES % 10.7 % (2.0-8.0); NEUTROPHILS % 74.2 % (40.0-76.0); PLATELET 219 x1000/uL (130-400); RED BLOOD CELL COUNT 2.66 mill/uL (4.7-6.1); RED CELL DISTRIBUTION WIDTH 21.5 % (11.6-14.6)
[2022-05-31 12:00] VITALS: BP 110/50
[2022-05-31 16:00] VITALS: BP 136/60
[2022-05-31 16:10] LABS: CHLORIDE 97 mEq/L (98-107)
[2022-05-31 19:59] LABS: CLARITY URINE CLEAR (CLEAR); COLOR URINE YELLOW (YELLOW); KETONES URINE NEGATIVE (NEGATIVE); LEUKOCYTE ESTERASE URINE 1+ (NEGATIVE); NITRITE URINE NEGATIVE (NEGATIVE); OCCULT BLOOD URINE NEGATIVE (NEGATIVE); PH URINE 7.5 (4.5-8.0); PROTEIN URINE NEGATIVE (NEGATIVE)
[2022-05-31 20:00] VITALS: BP 101/53
[2022-05-31] MEDS: TRAZODONE HCL 50MG TABLET PO SCH (20:50)
[2022-06-01] VITALS: BP 112/52
[2022-06-01] MEDS: IPRATROPIUM/ALBUTEROL 0.5-3(2.5)MG/3ML NEB HHN SCH ×6 (01:15→21:00)
[2022-06-01 04:00] VITALS: BP 115/52
[2022-06-01] MEDS: CYANOCOBALAMIN 1000MCG TABLET PO SCH (07:01)
[2022-06-01] MEDS: PANTOPRAZOLE 40MG DR TABLET PO SCH ×2 (07:01→20:22)
[2022-06-01] MEDS: ASCORBIC ACID 500 MG TABLET PO SCH ×2 (07:01→17:29)
[2022-06-01] MEDS: FERROUS SULFATE 325MG TABLET PO SCH ×2 (07:01→17:29)
[2022-06-01] MEDS: ACETAMINOPHEN 325MG TABLET PO PRN ×2 (07:38→17:40)
[2022-06-01 07:51] LABS: HEMATOCRIT. 25.5 % (42.0-52.0); HEMOGLOBIN. 8.5 g/dL (14.0-18.0); MEAN CORPUSCULAR HEMOGLOBIN 32.4 pg (28.0-32.0); MEAN CORPUSCULAR VOLUME 97.8 fL (80.0-94.0); MEAN PLATELET VOLUME 9.1 fl (7.4-10.4); PLATELET 221 x1000/uL (130-400); RED BLOOD CELL COUNT 2.61 mill/uL (4.7-6.1); RED CELL DISTRIBUTION WIDTH 21.3 % (11.6-14.6)
[2022-06-01 08:00] VITALS: BP 98/60
[2022-06-01] MEDS: AMLODIPINE 2.5MG TABLET PO SCH (09:00)
[2022-06-01] MEDS: SULFAMETHOXAZOLE/TRIMETHOPRIM 800/160MG TABLET PO SCH ×2 (09:24→20:22)
[2022-06-01] MEDS: FOLIC ACID 1MG TABLET PO SCH (09:24)
[2022-06-01] MEDS: GUAIFENESIN/DM 600MG/30MG ER TAB 12HR PO SCH ×2 (09:24→20:22)
[2022-06-01 10:45] LABS: PLATELET ESTIMATE NORMAL
[2022-06-01 10:47] LABS: CHLORIDE 98 mEq/L (98-107)
[2022-06-01 16:00] VITALS: BP 113/45
[2022-06-01 20:00] VITALS: BP 111/54
[2022-06-01] MEDS: TRAZODONE HCL 50MG TABLET PO SCH (20:22)
[2022-06-02] VITALS: BP 130/56
[2022-06-02] MEDS: IPRATROPIUM/ALBUTEROL 0.5-3(2.5)MG/3ML NEB HHN SCH ×5 (00:14→20:48)
[2022-06-02 04:00] VITALS: BP 129/55
[2022-06-02] MEDS: ACETAMINOPHEN 325MG TABLET PO PRN ×2 (04:58→20:11)
[2022-06-02] MEDS: ASCORBIC ACID 500 MG TABLET PO SCH ×2 (06:05→18:04)
[2022-06-02] MEDS: FERROUS SULFATE 325MG TABLET PO SCH ×2 (06:05→18:04)
[2022-06-02] MEDS: PANTOPRAZOLE 40MG DR TABLET PO SCH ×2 (06:05→20:12)
[2022-06-02] MEDS: CYANOCOBALAMIN 1000MCG TABLET PO SCH (06:05)
[2022-06-02 07:35] LABS: HEMATOCRIT. 24.1 % (42.0-52.0); MEAN CORPUSCULAR HEMOGLOBIN 32.6 pg (28.0-32.0); MEAN CORPUSCULAR VOLUME 98.3 fL (80.0-94.0); PLATELET 206 x1000/uL (130-400); RED BLOOD CELL COUNT 2.45 mill/uL (4.7-6.1); RED CELL DISTRIBUTION WIDTH 21.4 % (11.6-14.6)
[2022-06-02 08:00] VITALS: BP 117/55
[2022-06-02 08:03] LABS: CHLORIDE 96 mEq/L (98-107)
[2022-06-02] MEDS: SULFAMETHOXAZOLE/TRIMETHOPRIM 800/160MG TABLET PO SCH ×2 (09:21→20:12)
[2022-06-02] MEDS: FOLIC ACID 1MG TABLET PO SCH (09:21)
[2022-06-02] MEDS: GUAIFENESIN/DM 600MG/30MG ER TAB 12HR PO SCH ×2 (09:21→21:00)
[2022-06-02] MEDS: AMLODIPINE 2.5MG TABLET PO SCH (09:22)
[2022-06-02 10:43] LABS: PLATELET ESTIMATE NORMAL
[2022-06-02 12:00] VITALS: BP 108/66
[2022-06-02 16:00] VITALS: BP 114/81
[2022-06-02 20:00] VITALS: BP 119/64
[2022-06-02] MEDS: TRAZODONE HCL 50MG TABLET PO SCH (20:12)
[2022-06-02] MEDS: GUAIFENESIN 200MG/10ML SUGAR FREE UDC PO PRN (20:12)
[2022-06-03] VITALS (7 sets, daily range): BP systolic 106–123; BP diastolic 41–81
[2022-06-03] MEDS: IPRATROPIUM/ALBUTEROL 0.5-3(2.5)MG/3ML NEB HHN SCH ×6 (00:12→21:22)
[2022-06-03] MEDS: FERROUS SULFATE 325MG TABLET PO SCH ×2 (05:14→19:05)
[2022-06-03] MEDS: ASCORBIC ACID 500 MG TABLET PO SCH ×2 (05:14→19:05)
[2022-06-03] MEDS: CYANOCOBALAMIN 1000MCG TABLET PO SCH (05:14)
[2022-06-03] MEDS: PANTOPRAZOLE 40MG DR TABLET PO SCH ×2 (05:14→21:45)
[2022-06-03] MEDS: ACETAMINOPHEN 325MG TABLET PO PRN ×3 (05:16→22:31)
[2022-06-03 08:43] LABS: BASOPHILS % 1.1 % (0.0-2.0); EOSINOPHILS % 3.4 % (0.0-5.0); HEMATOCRIT. 23.4 % (42.0-52.0); HEMOGLOBIN. 7.7 g/dL (14.0-18.0); LYMPHOCYTES % 17.6 % (20.0-50.0); MEAN CORPUSCULAR VOLUME 97.3 fL (80.0-94.0); MEAN PLATELET VOLUME 9.2 fl (7.4-10.4); MONOCYTES % 9.5 % (2.0-8.0); NEUTROPHILS % 68.4 % (40.0-76.0); PLATELET 215 x1000/uL (130-400); RED CELL DISTRIBUTION WIDTH 22.1 % (11.6-14.6)
[2022-06-03 09:22] LABS: CHLORIDE 98 mEq/L (98-107)
[2022-06-03] MEDS: DOCUSATE SODIUM 100MG CAPSULE PO PRN (09:22)
[2022-06-03] MEDS: GUAIFENESIN/DM 600MG/30MG ER TAB 12HR PO SCH ×2 (09:22→21:46)
[2022-06-03] MEDS: AMLODIPINE 2.5MG TABLET PO SCH (09:22)
[2022-06-03] MEDS: FOLIC ACID 1MG TABLET PO SCH (09:22)
[2022-06-03] MEDS: SULFAMETHOXAZOLE/TRIMETHOPRIM 800/160MG TABLET PO SCH ×2 (09:22→21:45)
[2022-06-03] MEDS: TRAZODONE HCL 50MG TABLET PO SCH (21:45)
[2022-06-03] MEDS: GUAIFENESIN 200MG/10ML SUGAR FREE UDC PO PRN (21:45)
== END 2022-06-03 23:13 | DRG 189 ==
LOC: ER 14:55 → EDBEDREQ 17:45 → EDBEDREQSVC 18:50 → ENRESERV 18:52 → 3WST 23:22 → 6EST 05-23 18:59
PROVIDERS: ADMIT Family Medicine Adult Medicine; ATTEND Family Medicine Adult Medicine
PROC: 30233N1 Transfusion of Nonautologous Red Blood Cells into Peripheral Vein, Percutaneous Approach (ICD-10-PCS; principal; 2022-05-13)
PROC: 5A09457 Assistance with Respiratory Ventilation, 24-96 Consecutive Hours, Continuous Positive Airway Pressure (ICD-10-PCS; 2022-05-13)
PROC: 5A09357 Assistance with Respiratory Ventilation, Less than 24 Consecutive Hours, Continuous Positive Airway Pressure (ICD-10-PCS; 2022-05-17)
PROC: 5A09357 Assistance with Respiratory Ventilation, Less than 24 Consecutive Hours, Continuous Positive Airway Pressure (ICD-10-PCS; 2022-05-19)
PROC: 5A09357 Assistance with Respiratory Ventilation, Less than 24 Consecutive Hours, Continuous Positive Airway Pressure (ICD-10-PCS; 2022-05-21)
PROC: 5A09357 Assistance with Respiratory Ventilation, Less than 24 Consecutive Hours, Continuous Positive Airway Pressure (ICD-10-PCS; 2022-05-25)
PROC: 5A09357 Assistance with Respiratory Ventilation, Less than 24 Consecutive Hours, Continuous Positive Airway Pressure (ICD-10-PCS; 2022-05-26)
PROC: 5A09357 Assistance with Respiratory Ventilation, Less than 24 Consecutive Hours, Continuous Positive Airway Pressure (ICD-10-PCS; 2022-05-28)
DX: J96.21 Acute and chronic respiratory failure with hypoxia (principal); J18.9 Pneumonia, unspecified organism; I50.31 Acute diastolic (congestive) heart failure; D62 Acute posthemorrhagic anemia; G93.40 Encephalopathy, unspecified; E46 Unspecified protein-calorie malnutrition; J44.1 Chronic obstructive pulmonary disease with (acute) exacerbation; N39.0 Urinary tract infection, site not specified; K56.7 Ileus, unspecified; K92.1 Melena; E87.3 Alkalosis; E87.4 Mixed disorder of acid-base balance; Z68.41 Body mass index [BMI] 40.0-44.9, adult; I13.0 Hypertensive heart and chronic kidney disease with heart failure and stage 1 through stage 4 chronic kidney disease, or unspecified chronic kidney disease; J96.22 Acute and chronic respiratory failure with hypercapnia; Z20.822 Contact with and (suspected) exposure to COVID-19; E78.2 Mixed hyperlipidemia; D50.9 Iron deficiency anemia, unspecified; K59.00 Constipation, unspecified; G47.33 Obstructive sleep apnea (adult) (pediatric); R74.01 Elevation of levels of liver transaminase levels; D53.9 Nutritional anemia, unspecified; N18.9 Chronic kidney disease, unspecified; I34.0 Nonrheumatic mitral (valve) insufficiency; E87.5 Hyperkalemia; E53.8 Deficiency of other specified B group vitamins; E66.9 Obesity, unspecified; D63.8 Anemia in other chronic diseases classified elsewhere; F03.90 Unspecified dementia, unspecified severity, without behavioral disturbance, psychotic disturbance, mood disturbance, and anxiety; I73.9 Peripheral vascular disease, unspecified; Z87.891 Personal history of nicotine dependence; Z79.82 Long term (current) use of aspirin; Z79.899 Other long term (current) drug therapy; Z99.81 Dependence on supplemental oxygen
CPT/HCPCS: 36415; 36600; 71045; 71275; 76700; 80048; 80053; 80061; 80076; 80305; 81003; 82270; 82375; 82550; 82607; 82746; 82805; 83540; 83550; 83735; 83880; 84145; 84443; 84484; 85014; 85018; 85025; 85044; 86705; 86709; 86803; 86850; 86900; 86920; 87340; 87426; 90686; 90732; 93005; 93306; 93970; 94640; 94660; 97110; 97116; 97162; 97166; 97530; 99291; C1893; C9113; C9803; J0696; J1940; J2920; J2930; J3490; J7060; J7512; J7626; P9016; P9047; Q9967

== ENCOUNTER 2025-04-14 16:19 | Inpatient (IN) | payer MEDICAID, MEDICARE ==
[~2025-04-14] VITALS: Ht 165.1 cm; Wt 92.5 kg
[~2025-04-14 16:19] MED LIST: ALBU05 NEB; ASPI-1497 MT; NITR0.4T49 SL
[2025-04-14 17:08] LABS: HEMATOCRIT. 31.3 % (42.0-52.0); HEMOGLOBIN. 10.2 g/dL (14.0-18.0); MEAN PLATELET VOLUME 8.9 fl (7.4-10.4); PLATELET 174 x1000/uL (130-400); RED BLOOD CELL COUNT 2.81 mill/uL (4.7-6.1); RED CELL DISTRIBUTION WIDTH 24.7 % (11.6-14.6)
[2025-04-14 17:15] LABS: CLARITY URINE CLEAR (CLEAR); GLUCOSE URINE NEGATIVE (NEGATIVE); KETONES URINE NEGATIVE (NEGATIVE); LEUKOCYTE ESTERASE URINE NEGATIVE (NEGATIVE); NITRITE URINE NEGATIVE (NEGATIVE); OCCULT BLOOD URINE TRACE (NEGATIVE); PH URINE 6.5 (4.5-8.0); PROTEIN URINE 1+ (NEGATIVE); SPECIFIC GRAVITY URINE 1.024 (1.005-1.030); UROBILINOGEN URINE 1.0 E.U./dL (0.2-1.0)
[2025-04-14 17:22] LABS: CREATININE 1.0 mg/dL (0.6-1.3)
[2025-04-14 17:23] LABS: ETHANOL BLOOD < 10 mg/dL (<10); INR 1.2; TROPONIN I HIGH SENSITIVITY 15 ng/L (3.0-53); UREA NITROGEN BLOOD 10 mg/dL (9-23)
[2025-04-14 17:24] LABS: ASPARTATE AMINOTRANSFERASE 31 IU/L (<34); BILIRUBIN DIRECT 0.3 mg/dL (<=3.0)
[2025-04-14 17:25] LABS: BILIRUBIN TOTAL 0.7 mg/dL (0.1-1.0); PROTEIN TOTAL 6.1 g/dL (6.0-8.3)
[2025-04-14 17:36] LABS: *AMPHETAMINES SCREEN URINE NEGATIVE (NEGATIVE); *BARBITURATES SCREEN URINE NEGATIVE (NEGATIVE); *BENZODIAZEPINES SCREEN URINE NEGATIVE (NEGATIVE); *COCAINE SCREEN URINE NEGATIVE (NEGATIVE); CANNABINOID URINE SCREEN NEGATIVE (NEGATIVE); ECSTASY MDMA SCREEN URINE NEGATIVE (NEGATIVE); METHADONE URINE SCREEN NEGATIVE (NEGATIVE); OPIATES URINE SCREEN NEGATIVE (NEGATIVE); PHENCYCLIDINE URINE SCREEN NEGATIVE (NEGATIVE)
[2025-04-14] MEDS: AZITHROMYCIN 500MG/250ML 250 ML IV SCH (17:45)
[2025-04-14 17:50] LABS: BAND% 2.0 % (1.0-6.0); EOSINOPHILS % MANUAL 4.0 % (0.0-5.0); LYMPHOCYTES % MANUAL 24.0 % (20.0-50.0); MONOCYTES % MANUAL 18.0 % (2.0-8.0); NEUTROPHILS % MANUAL 52.0 % (45.0-75.0)
[2025-04-14 17:51] LABS: COLOR URINE STRAW (YELLOW)
[2025-04-14 17:51] LABS: PLATELET ESTIMATE NORMAL
[2025-04-14 17:53] LABS: RBC URINE NONE SEEN /hpf (0-2); SQUAMOUS EPITHELIAL CELL URINE RARE /lpf (RARE/1+); WBC URINE 0-2 /hpf (0-2)
[2025-04-14 17:54] LABS: BACTERIA URINE NONE SEEN; MUCUS URINE TRACE /lpf (NONE/TRACE)
[2025-04-14] MEDS: CEFTRIAXONE 2GM/50ML 50 ML IV ONE (18:06)
[2025-04-14] MEDS: SODIUM CHLORIDE 0.9% 1,000 ML IV ONE (18:06)
[2025-04-14 18:07] LABS: BG BASE EXCESS 2.7 mmol/L (-2.0-3.0); BG CARBOXYHEMOGLOBIN 0.2 % (0.5-1.5); BG DEOXYHEMOGLOBIN 1.9 % (0.0-5.0); BG FRACTION INSPIRED OXYGEN 32; BG HCO3 ACT 28.9 mmol/L (21.0-28.0); BG METHEMOGLOBIN 0.1 % (0.5-1.5); BG OXYGEN SATURATION 98.1 % (94.0-98.0); BG OXYHEMOGLOBIN 97.8 % (94.0-98.0); BG PCO2 51.9 mmHg (35.0-48.0); BG PH 7.363 (7.350-7.450); BG PO2 109.5 mmHg (83.0-108.0); BG SAMPLE SITE RIGHT RADIAL; BG TOTAL HEMOGLOBIN 11.4 g/dL (13.5-17.5); BG VENT MODE NASAL CANNULA
[2025-04-14] MEDS: ASPIRIN 81MG TABLET PO ONE (18:49)
[2025-04-14] MEDS: HYDRALAZINE 20MG/ML VIAL IV PRN (21:11)
[2025-04-14 21:30] VITALS: BP 158/62; PULSE 87; RESP 18; TEMP 36.6; O2SAT 98
[2025-04-14] MEDS ORDERED: TIMO15DR11 (21:51)
[2025-04-14] MEDS ORDERED: PANT40TA51 PO (21:51)
[2025-04-14] MEDS ORDERED: LATA2.5D7 EACHEYE (21:51)
[2025-04-14] MEDS ORDERED: ALLO100T PO (21:51)
[2025-04-14] MEDS ORDERED: ATOR-2 PO (21:51)
[2025-04-14 22:36] VITALS: BP 158/62; PULSE 87; RESP 18; TEMP 36.5848
[2025-04-14] MEDS ORDERED: IOHEXOL-350 100 ML BOTTLE ONE (22:42)
[2025-04-14 23:25] VITALS: RESP 24
[2025-04-15] VITALS (10 sets, daily range): BP systolic 104–151; BP diastolic 54–79; PULSE 62–92; RESP 16–22; TEMP 36.2–36.9; O2SAT 96–100
[2025-04-15] MEDS: IPRATROPIUM/ALBUTEROL 0.5-3(2.5)MG/3ML NEB HHN SCH
[2025-04-15 06:54] LABS: PLATELET 173 x1000/uL (130-400); RED BLOOD CELL COUNT 2.96 mill/uL (4.7-6.1); RED CELL DISTRIBUTION WIDTH 25.5 % (11.6-14.6)
[2025-04-15 07:07] LABS: CREATININE 1.0 mg/dL (0.6-1.3); TRIGLYCERIDE 48 mg/dL (0-150); UREA NITROGEN BLOOD 9 mg/dL (9-23)
[2025-04-15 07:08] LABS: LDL CHOLESTEROL 45 mg/dL (5-100)
[2025-04-15] MEDS: ASPIRIN 81MG EC TABLET PO SCH (09:20)
[2025-04-15] MEDS: PANTOPRAZOLE 40MG DR TABLET PO SCH (09:20)
[2025-04-15] MEDS: ALLOPURINOL 100 MG TABLET PO SCH (09:20)
[2025-04-15] MEDS: ATORVASTATIN CALCIUM 40MG TABLET PO SCH (09:21)
[2025-04-15] MEDS: AMLODIPINE 10MG TABLET PO SCH (09:21)
[2025-04-15] MEDS: ENOXAPARIN 40MG/0.4ML SYR SUBCUT SCH (09:21)
[2025-04-15] MEDS: TIMOLOL MALEATE 0.25% OPHTH DROPS 5ML EACHEYE SCH (09:22)
[2025-04-15] MEDS: LATANOPROST 0.005% OPHTH DROPS 2.5ML EACHEYE SCH (20:45)
[2025-04-16] VITALS (8 sets, daily range): BP systolic 127–138; BP diastolic 58–71; PULSE 63–93; RESP 18–21; TEMP 36.2–36.7; O2SAT 95–100
== END 2025-04-16 17:59 | disposition left against medical advice (07) | DRG 64 ==
LOC: ER 16:19 → 7WST 18:24 → EDBEDREQTM 18:29 → EDBEDREQ 18:29
PROVIDERS: ADMIT Internal Medicine; ATTEND Internal Medicine
PROC: 5A09357 Assistance with Respiratory Ventilation, Less than 24 Consecutive Hours, Continuous Positive Airway Pressure (ICD-10-PCS; principal; 2025-04-15)
DX: I63.9 Cerebral infarction, unspecified (principal); G93.41 Metabolic encephalopathy; I50.32 Chronic diastolic (congestive) heart failure; J44.9 Chronic obstructive pulmonary disease, unspecified; I11.0 Hypertensive heart disease with heart failure; Z99.81 Dependence on supplemental oxygen; R29.701 NIHSS score 1; Z55.6 Problems related to health literacy; Z79.02 Long term (current) use of antithrombotics/antiplatelets; Z79.82 Long term (current) use of aspirin; Z91.199 Patient's noncompliance with other medical treatment and regimen due to unspecified reason
CPT/HCPCS: 36415; 36600; 70496; 70498; 71045; 80048; 80061; 80076; 80305; 80320; 81003; 82375; 82805; 83605; 83735; 83880; 84145; 84484; 85025; 85027; 93005; 93306; 94070; 94640; 94660; 94664; 97166; 97535; 99291; J0360; J0456; J0696; J1650; J7030; Q9967; G0480